=== PATIENT | male | born 1960 | race Hispanic/Latino ===

== ENCOUNTER 2018-06-27 08:12 | Day surgery (SDC) | payer OTHER ==
[2018-06-27] VITALS (7 sets, daily range): BP systolic 109–130; BP diastolic 66–77
[~2018-06-27] VITALS: Ht 175.3 cm; Wt 85.5 kg
[2018-06-27 08:34] LABS: BASOPHILS % (AUTO) 0.4 % (0.0-5.0); EOSINOPHILS % (AUTO) 1.1 % (0.0-8.0); LYMPHOCYTES % (AUTO) 12.4 % (21.0-51.0); MEAN CORPUSCULAR HEMOGLOBIN 28.6 pg (27.0-33.0); MEAN CORPUSCULAR HGB CONC 34.8 g/dL (32.0-36.0); MEAN CORPUSCULAR VOLUME 82.3 fL (79-99); MONOCYTES % (AUTO) 8.6 % (3.0-13.0); NEUTROPHILS % (AUTO) 77.5 % (40.0-77.0); PLATELET COUNT (AUTO) 189 K/uL (130-400); RED BLOOD CELL COUNT(AUTO) 4.99 MIL/uL (4.50-6.20); RED CELL DISTRIBUTION WIDTH 14.8 % (11.0-15.5); WHITE BLOOD COUNT (AUTO) 8.2 K/uL (4.8-10.8)
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
[2018-06-27 08:46] LABS: CREATININE 1.2 mg/dL (0.5-1.5); POTASSIUM 4.1 mmol/L (3.5-5.1)
[2018-06-27 08:48] LABS: INR 1.09 (0.85-1.15); PARTIAL THROMBOPLASTIN TIME 29.4 SEC (26.3-35.5); PROTHROMBIN TIME 11.4 SEC (9.6-11.6)
[2018-06-27 08:51] LABS: ALBUMIN 3.7 g/dL (3.5-5.0); BILIRUBIN,TOTAL 1.3 mg/dL (0.2-1.0); TOTAL PROTEIN, SERUM 8.3 g/dL (6.0-8.3)
[2018-06-27] MEDS ORDERED: SODIUM CHLORIDE 0.9% 1000ML 1,000 ML IV ONE (09:31)
[2018-06-27] MEDS ORDERED: LIDOCAINE HCL 1% 20 ML VIAL ONE (10:14)
[2018-06-27] MEDS ORDERED: FENTANYL CITRATE PF 50 MCG/1 ML 2ML VIAL ONE (10:14)
[2018-06-27] MEDS ORDERED: MIDAZOLAM HCL 1 MG/ML 2ML VIAL ONE (10:14)
[2018-06-27] MEDS ORDERED: LIDOCAINE 1%-EPI 1:100,000 20 ML VIAL IJ ONE (10:15)
--- NOTE | 2018-06-27 10:30 | NUR ---
to ct in stable condition via stretcher by [employer] transportation
--- NOTE | 2018-06-27 11:25 | NUR ---
U/S GD LIVER BX PROCEDURE PERFORMED BY DR. FABIAN. PUNCTURE SITE EPIGASTRIC REGION OF THE ABDOMEN AND PATIENT TOLERATED PROCEDURE WELL. SPECIMEN X 3 COLLECTED AND SENT TO LAB. END OF PROCEDURE AT 1135. FLOSEAL APPLIED TO TRACK SITE, BIOPSY NEEDLE REMOVED AND DRESSING APPLIED. NO BLEEDING NOTED. REPORT GIVEN TO FRANCK DOLL AND PATIENT TRANSPORTED TO [facility] VIA BED. STABLE, AAO X3 WITH NO C/O PAIN.
--- NOTE | 2018-06-27 12:10 | NUR ---
DRESSING DRESSING TO RUQ CLEAN, DRY, INTACT, NO BLEEDING NOTED, NO SIGNS OF HEMATOMA, SOFT TO TOUCH, NO PAIN NOTED, SEMIFOWLERS ON STRETCHER, CALL PHILLIPS IN REACH, SIDE RAILS UP X2
--- NOTE | 2018-06-27 12:25 | NUR ---
DRESSING DRESSING TO RUQ CLEAN, DRY, INTACT, NO BLEEDING NOTED, NO SIGNS OF HEMATOMA, SOFT TO TOUCH, NO PAIN NOTED, CONTINUES SEMIFOWLERS ON STRETCHER, CALL PHILLIPS IN REACH, SIDE RAILS UP X2
--- NOTE | 2018-06-27 12:45 | NUR ---
SITE CHECK SITE TO RIGHT UPPER CHEST DRY AND INTACT. SOFT TO TOUCH. NO BLEEDING, OOZING NOTED.
--- NOTE | 2018-06-27 12:59 | NUR ---
SITE CHECK SITE TO RIGHT UPPER CHEST DRY AND INTACT. SOFT TO TOUCH. NO BLEEDING, OOZING NOTED.
--- NOTE | 2018-06-27 13:30 | NUR ---
MEAL IN BED FOWLERS, EATING MEAL, STATES HES FEELING GOOD.
--- NOTE | 2018-06-27 14:00 | NUR ---
site check DRESSING TO RUQ CLEAN, DRY, INTACT, NO BLEEDING NOTED, NO SIGNS OF HEMATOMA, SOFT TO TOUCH, PAIN LEVEL 2, SEMIFOWLERS ON STRETCHER, CALL PHILLIPS IN REACH, SIDE RAILS UP X2
== END 2018-06-27 15:10 | disposition home or self-care (01) ==
LOC: DAH 08:12 → EDSTATUS 09:00 → DAH 15:10
PROVIDERS: ATTEND General Practice
DX: C22.7 Other specified carcinomas of liver (principal); Z79.899 Other long term (current) drug therapy; Z68.30 Body mass index [BMI] 30.0-30.9, adult; N40.0 Benign prostatic hyperplasia without lower urinary tract symptoms; M10.9 Gout, unspecified; M54.5 Low back pain; E78.2 Mixed hyperlipidemia; Z86.010 Personal history of colon polyps; K74.60 Unspecified cirrhosis of liver
CPT/HCPCS: 36415; 47000; 76942; 80053; 85025; 85610; 85730; 88307; 88313; A4606; C2615; J2250; J3010; J3490; J7030; 99152

== ENCOUNTER → 2018-07-04 | Outpatient (CLI) | payer OTHER | END | disposition home or self-care (01) | LOC: RAH 14:36 | PROVIDERS: ATTEND General Practice | DX: K76.89 Other specified diseases of liver (principal) | CPT/HCPCS: 78306; A9503 ==